=== PATIENT | female | born 1950 | race Caucasian/White ===

== ENCOUNTER → 2018-06-13 | Outpatient (CLI) | payer OTHER | LOC: M WHC 13:55 | DX: Z12.31 Encounter for screening mammogram for malignant neoplasm of breast (principal); M81.0 Age-related osteoporosis without current pathological fracture; J44.9 Chronic obstructive pulmonary disease, unspecified; M85.851 Other specified disorders of bone density and structure, right thigh; M85.852 Other specified disorders of bone density and structure, left thigh | CPT/HCPCS: 77067 ==

== ENCOUNTER → 2020-06-03 | Outpatient (CLI) | payer MEDICARE ==
--- NOTE | 2020-06-03 15:19 | REPVR ---
PROCEDURE INFORMATION: Exam: CT Maxillofacial Without Contrast, Sinus Exam date and time: 06/03/2020 2:47 PM Age: 69 years old Clinical indication: Pain; Other: Sinus; Additional info: Chronic pansinusitis TECHNIQUE: Imaging protocol: CT Maxillofacial without contrast. Focus on the sinuses. Radiation optimization: All CT scans at this facility use at least one of these dose optimization techniques: automated exposure control; mA and/or kV adjustment per patient size (includes targeted exams where dose is matched to clinical indication); or iterative reconstruction. COMPARISON: No relevant prior studies available. FINDINGS: Frontal sinuses: Frontal sinuses are not developed. Ethmoid air cells: There is minimal mucosal thickening in few ethmoid air cells. There is a very small osteoma in a mid ethmoid air cell on left. Sphenoid sinuses: Sphenoid sinuses are clear. Maxillary sinuses: There is a polypoid density in the right maxillary sinus which protrudes through the ostium into the nasal cavity and through the nasal choana into the nasopharynx crossing the midline. This is likely an antral choanal polyp. Recommend direct visualization. This has mass effect and medially displaces the middle turbinate. There appears to be some surrounding fluid around the polyp. There is minimal mucosal thickening superior aspect of left maxillary sinus. Nasal cavity/Septum: See "Maxillary sinuses" finding. Nasal septum is deviated to the right. Orbits: Orbits are unremarkable. Globes are intact. No exophthalmos. No evidence of mass. Bones/joints: Mild degenerative changes are noted in the visualized upper cervical spine. There is fracture of anterior wall of right maxillary sinus which in absence of any recent trauma is likely chronic and correlate clinically. Soft tissues: See "Submandibular/Parotid glands" finding. Mastoid air cells: Right mastoid air cells are less well aerated than left. Developed mastoid air cells and middle ear cavities are clear. Submandibular/Parotid glands: There is approximately 1.4 cm x 1 cm x 1.1 cm soft tissue mass in the posterolateral superficial portion the left parotid gland which contains a punctate calcification along its inferior margin. This is most likely some type salivary neoplasm such as a pleomorphic adenoma. This would be amenable to percutaneous biopsy. This located deep to the posterior auricle. IMPRESSION: 1. Right antral choanal polyp suggested and correlate with direct nasal cavity visualization. There appears to be adjacent fluid. Other sinus findings as described. 2. Small left superficial parotid mass. Electronically signed by: Juany Lopez On 06/03/2020 15:19:38 PM
== END ==
LOC: M RAD 14:27
PROVIDERS: ATTEND Otolaryngology
DX: J32.4 Chronic pansinusitis (principal); J33.9 Nasal polyp, unspecified; R22.1 Localized swelling, mass and lump, neck

== ENCOUNTER → 2020-10-19 | Outpatient (CLI) | payer MEDICARE ==
[~2020-10-19] MED LIST: AMLO1TAB25 PO; ASPI81CH17 PO; ATOR80TA59 PO; CARV6.25 PO; CITA40TA4 PO; D-101000 PO; FISH1000 PO; LISI40TA PO; POTA1TAB23 PO; VITA80003 PO
== END ==
LOC: M LABSMTC 11:00
PROVIDERS: ATTEND Anesthesiology
DX: Z01.812 Encounter for preprocedural laboratory examination (principal); Z20.822 Contact with and (suspected) exposure to COVID-19

== ENCOUNTER 2020-10-24 06:07 | Day surgery (SDC) | payer MEDICARE ==
[~2020-10-24] VITALS: Ht 157.5 cm; Wt 81.2 kg
[2020-10-24] MEDS ORDERED: METHYLENE BLUE 0.5% (5MG/ML) 10 ML AMP (PROVAYBLUE) As Ordered ONE (07:10)
[2020-10-24] MEDS ORDERED: LIDOCAINE W/EPINEPHRINE 1% 20ML VIAL As Ordered ONE (07:10)
[2020-10-24] MEDS ORDERED: EPINEPHrine 1MG/ML INJ 30ML MD-VIAL As Ordered ONE (07:10)
[2020-10-24] MEDS ORDERED: propofoL 200 MG/20 ML VIAL As Ordered ONE (07:55)
[2020-10-24] MEDS ORDERED: MIDAZOLAM INJ 2MG/2ML VIAL (J2250 PER 1MG) As Ordered ONE (07:55)
[2020-10-24] MEDS ORDERED: KETOROLAC 60MG 2ML VIAL As Ordered ONE (07:55)
[2020-10-24] MEDS ORDERED: fentaNYL 100 MCG/2 ML INJECTION (J3010) As Ordered ONE (07:55)
[2020-10-24] MEDS ORDERED: ROCURONIUM BROMIDE 50 MG/5 ML VIAL As Ordered ONE (07:55)
[2020-10-24] MEDS ORDERED: LIDOCAINE 2% 100MG/5ML SDV (FOR ANES.) As Ordered ONE (07:55)
[2020-10-24] MEDS ORDERED: SUGAMMADEX SODIUM 500 MG/5 ML VIAL (BRIDION) As Ordered ONE (07:55)
[2020-10-24] MEDS ORDERED: ONDANSETRON 4MG/2ML VIAL As Ordered ONE (07:55)
[2020-10-24] MEDS ORDERED: dexameTHASONE 4 MG/ML 1ML VIAL (J1100 PER 1MG) As Ordered ONE (07:55)
[2020-10-24] MEDS ORDERED: LACRILUBE (AKWA TEARS) OPHTH OINT 3.5 GM As Ordered ONE (07:57)
[2020-10-24] MEDS ORDERED: ALBUTEROL 6.7GM INHALER **FOR ANES. CART/OMNICELL ONLY As Ordered ONE (07:57)
[2020-10-24] MEDS ORDERED: hydrALAZINE 20MG/ML 1ML VIAL (J0360 PER 20MG) As Ordered ONE (08:09)
[2020-10-24] MEDS ORDERED: ACETAMINOPH W/CODEINE #3 TAB UD PO PRN (08:30)
[2020-10-24] MEDS ORDERED: LR 1,000 ML IV SCH ×2 (08:30→09:00)
[2020-10-24] MEDS ORDERED: HYDROMORPHONE HCL 0.5 MG/ 0.5 ML SYRINGE (J1170 PER 1) IV PRN (09:00)
[2020-10-24] MEDS ORDERED: PERCOCET 5MG/325MG TAB PO PRN (09:00)
[2020-10-24] MEDS ORDERED: ONDANSETRON 4MG/2ML VIAL IV PRN (09:00)
[2020-10-24] MEDS ORDERED: fentaNYL 100 MCG/2 ML INJECTION (J3010) IV PRN (09:00)
--- NOTE | 2020-10-24 09:29 | RO ---
OPERATIVE NOTE DATE OF OPERATION: 10/24/2020 PREOPERATIVE DIAGNOSIS: Chronic sinusitis and right antrochoanal polyp. POSTOPERATIVE DIAGNOSIS: PROCEDURE: Removal of antrochoanal polyp and antrostomy. SURGEON: Caden Rhoades MD TUBE CUTTER: ANESTHESIA: DESCRIPTION OF PROCEDURE: Under general anesthesia with the patient intubated, the patient draped in the usual manner. I used pledgets of adrenalin 1:100,000. I used a microdebrider, removed the polyp as well as the forceps used to remove the polyp. Once this was done then, I removed any polypoid tissue with the microdebrider. I went up into the sinus. I enlarged that opening and suctioned the material and the polyp from the maxillary sinus. I examined the area afterwards to make sure there was no further disease. There was a bleeding vessel at the superior rim of the antrostomy and I cauterized that with cautery. The patient tolerated the procedure well. Less than 50 mL of blood loss. The patient extubated and transferred to the recovery room in excellent condition. I did put some Gelfoam around that area that had been bleeding at the end of the procedure but it was not bleeding.
[2020-10-24 10:20] VITALS: BP 119/62
== END 2020-10-24 10:20 | disposition home or self-care (01) ==
LOC: M SDC 06:07
PROVIDERS: ATTEND Otolaryngology
DX: J33.9 Nasal polyp, unspecified (principal); J32.9 Chronic sinusitis, unspecified; I10 Essential (primary) hypertension; E78.5 Hyperlipidemia, unspecified; F17.218 Nicotine dependence, cigarettes, with other nicotine-induced disorders; Z79.82 Long term (current) use of aspirin; Z79.899 Other long term (current) drug therapy; Z91.041 Radiographic dye allergy status
CPT/HCPCS: 31267; 88305; J0360; J1100; J1885; J2250; J2405; J3010; Q9968

== ENCOUNTER → 2020-11-11 | Outpatient (CLI) | payer MEDICARE ==
[~2020-11-11] MED LIST changes: +ASPI-281 PO; -ASPI81CH17 PO; -LISI40TA PO; +LISI40TA4 PO
--- NOTE | 2020-11-11 16:58 | REPMRS ---
Patient History The patient states she had a clinical breast exam in 10/2020 Patient is postmenopausal. Family history of ovarian cancer at age 58 in sister. No Hormone Replacement Therapy Digital Woman Screen Mammo: November 11, 2020 - Exam #: [id number] Bilateral CC and MLO view(s) were taken. Technologist: Mallika Horn, Technologist Prior study comparison: June 13, 2018, bilateral digital woman screen mammo performed at [facility]. June 12, 2015, digital woman screen mammo performed at [facility]. April 04, 2014, digital woman screen mammo performed at [facility]. FINDINGS: There are scattered fibroglandular densities. The Volpara volumetric breast density category is:B. There has been no change in the appearance of the mammogram from the prior studies. There is a mild amount of scattered fibroglandular density which is fairly symmetric. There is no interval development of dominant mass, architectural distortion, or grouped microcalcification suggestive of malignancy. 3-D tomosynthesis shows no additional findings. Assessment: BI-RADS/ACR category 1 mammogram. Negative Mammogram. Recommendation Routine screening mammogram of both breasts in 1 year (for women over age 40). This patient's [facility] Lifetime Breast Cancer Risk is estimated at 3.6 %. This mammogram was interpreted with the aid of an FDA-approved computer-aided dectection system. Electronically Signed By: Yovani Rivera MD 11/11/20 [id number]
== END ==
LOC: M WHC 12:52
PROVIDERS: ATTEND Nurse Practitioner Family
DX: Z01.419 Encounter for gynecological examination (general) (routine) without abnormal findings (principal); Z12.31 Encounter for screening mammogram for malignant neoplasm of breast; Z78.0 Asymptomatic menopausal state; Z80.41 Family history of malignant neoplasm of ovary
CPT/HCPCS: 77063; 77067; G0101; G0123

== ENCOUNTER → 2020-11-11 | Outpatient (REF) | payer MEDICARE | LOC: M SFHCWAGY 18:32 | PROVIDERS: ATTEND Nurse Practitioner Family | DX: Z12.4 Encounter for screening for malignant neoplasm of cervix (principal); N95.2 Postmenopausal atrophic vaginitis ==

== ENCOUNTER → 2020-12-31 | Outpatient (CLI) | payer MEDICARE ==
--- NOTE | 2021-01-01 06:24 | REP ---
INDICATION: UNEXPLAINED ENDOMETRIAL CELLS ON CERVICAL CYTOLOGY COMPARISON: None. TECHNIQUE: Transabdominal pelvic ultrasound followed by transvaginal examination for better evaluation of the endometrium and adnexa with color Doppler evaluation of the ovaries. FINDINGS: Bladder is under distended, unremarkable and measures 6.4 x 5.0 x 4.3 cm (75 cc).. Heterogeneous anteverted uterus measures 7.1 x 3.3 x 4.8 cm. The endometrial complex measures 14 mm thickness with few likely incidental tiny cysts. No discrete uterine or endometrial abnormalities are appreciated but evaluation is limited due to technical factors and body habitus. Right ovary is not visualized due to overlying bowel gas in the right hemipelvis. Left ovary peers normal and measures 1.4 x 1.3 x 1.6 cm. No pelvic fluid or adnexal mass lesion. IMPRESSION: Limited examination demonstrating heterogeneous anteverted uterus with thickened endometrial complex having small incidental cystic changes. <Electronically signed by Bryan Harvey > 01/01/21 [id number]
== END ==
LOC: M WHC 10:47
PROVIDERS: ATTEND Nurse Practitioner Family
DX: R87.618 Other abnormal cytological findings on specimens from cervix uteri (principal)

== ENCOUNTER → 2021-01-20 | Outpatient (REF) | payer MEDICARE | LOC: M SFHCWAGY 13:04 | PROVIDERS: ATTEND Nurse Practitioner Women's Health | DX: R87.618 Other abnormal cytological findings on specimens from cervix uteri (principal); R93.89 Abnormal findings on diagnostic imaging of other specified body structures ==

== ENCOUNTER → 2021-05-23 | Outpatient (CLI) | payer MEDICARE ==
[~2021-05-23] MED LIST changes: +VITA1CAP21 PO
== END ==
LOC: M LABSMTC 10:49
PROVIDERS: ATTEND Anesthesiology
DX: Z01.818 Encounter for other preprocedural examination (principal); Z20.822 Contact with and (suspected) exposure to COVID-19

== ENCOUNTER 2021-05-28 10:27 | Day surgery (SDC) | payer MEDICARE ==
[~2021-05-28] VITALS: Ht 154.9 cm; Wt 82.1 kg
[~2021-05-28 10:27] MED LIST changes: +LIDOCAINE 1% MDV 20ML VIAL SQ PRN
[2021-05-28] MEDS ORDERED: LR 1,000 ML IV ONE (10:35)
[2021-05-28] MEDS ORDERED: LIDOCAINE 2% 100MG/5ML SDV (FOR ANES.) As Ordered ONE (11:32)
[2021-05-28] MEDS ORDERED: propofoL 200 MG/20 ML VIAL As Ordered ONE (11:32)
[2021-05-28] MEDS ORDERED: fentaNYL 100 MCG/2 ML INJECTION (J3010) As Ordered ONE (11:33)
[2021-05-28] MEDS ORDERED: MIDAZOLAM INJ 2MG/2ML VIAL (J2250 PER 1MG) As Ordered ONE (11:33)
[2021-05-28] MEDS ORDERED: CIPRODEX OTIC SUSP 7.5ML As Ordered ONE (12:32)
[2021-05-28] MEDS ORDERED: PERCOCET 5MG/325MG TAB PO PRN (13:35)
[2021-05-28] MEDS ORDERED: ONDANSETRON 4MG/2ML VIAL IV PRN (13:35)
[2021-05-28] MEDS ORDERED: LR 1,000 ML IV SCH ×2 (13:35→13:40)
[2021-05-28] MEDS ORDERED: METOCLOPRAMIDE INJ 10MG/2ML VIAL (J2765 PER 1) IV PRN (13:35)
[2021-05-28] MEDS ORDERED: fentaNYL 100 MCG/2 ML INJECTION (J3010) IV PRN (13:35)
[2021-05-28 14:25] VITALS: BP 130/58
--- NOTE | 2021-05-29 09:16 | RO ---
OPERATIVE NOTE DATE OF OPERATION: 05/28/2021 PREOPERATIVE DIAGNOSIS: Chronic otitis media with effusion. POSTOPERATIVE DIAGNOSIS: Chronic otitis media with effusion. PROCEDURE: Bilateral tympanostomy. SURGEON: STERLING BOWDEN MD ANESTHESIA: General. DESCRIPTION OF PROCEDURE: Speculum placed in the left ear. An incision made anteroinferior. Fluid is suctioned. A T-tube was placed. The same procedure was performed on the opposite side. The patient tolerated the procedure well and was transferred to the Recovery Room in excellent condition. Ciprodex drops were placed in the ear.
== END 2021-05-28 14:30 | disposition home or self-care (01) ==
LOC: M SDC 10:27
PROVIDERS: ATTEND Otolaryngology
DX: H66.3X3 Other chronic suppurative otitis media, bilateral (principal); I11.9 Hypertensive heart disease without heart failure; E78.00 Pure hypercholesterolemia, unspecified; H04.129 Dry eye syndrome of unspecified lacrimal gland; R06.02 Shortness of breath; F41.0 Panic disorder [episodic paroxysmal anxiety]; F32.9 Major depressive disorder, single episode, unspecified; J44.9 Chronic obstructive pulmonary disease, unspecified; F17.210 Nicotine dependence, cigarettes, uncomplicated; Z91.041 Radiographic dye allergy status; Z88.8 Allergy status to other drugs, medicaments and biological substances; Z79.899 Other long term (current) drug therapy; Z79.82 Long term (current) use of aspirin
CPT/HCPCS: 69436; J2250; J3010

== ENCOUNTER → 2021-11-19 | Outpatient (CLI) | payer MEDICARE ==
[~2021-11-19] MED LIST changes: -ASPI-281 PO; +ASPI-310 PO; -CITA40TA4 PO; +CITA40TA7 PO; -LIDOCAINE 1% MDV 20ML VIAL SQ PRN
== END ==
LOC: M RAD 14:01
PROVIDERS: ATTEND Family Medicine
DX: Z12.2 Encounter for screening for malignant neoplasm of respiratory organs (principal); F17.210 Nicotine dependence, cigarettes, uncomplicated

== ENCOUNTER → 2023-01-15 | Outpatient (CLI) | payer MEDICARE | LOC: M RAD 12:07 | PROVIDERS: ATTEND Family Medicine | DX: Z12.2 Encounter for screening for malignant neoplasm of respiratory organs (principal); F17.210 Nicotine dependence, cigarettes, uncomplicated ==

== ENCOUNTER → 2023-04-20 | Outpatient (REF) | payer MEDICARE | LOC: M LAB REF 16:31 | PROVIDERS: ATTEND Physician Assistant Medical | DX: H92.11 Otorrhea, right ear (principal) ==

== ENCOUNTER → 2024-02-11 | Outpatient (CLI) | payer MEDICARE | LOC: M WHC 12:22 | PROVIDERS: ATTEND Family Medicine | DX: Z12.31 Encounter for screening mammogram for malignant neoplasm of breast (principal); Z13.820 Encounter for screening for osteoporosis; M81.0 Age-related osteoporosis without current pathological fracture; R92.323 Mammographic fibroglandular density, bilateral breasts ==

== ENCOUNTER → 2024-03-06 | Outpatient (REF) | payer MEDICARE ==
[2024-03-08 21:42] LABS: HPV APTIMA Not Detected (Not Detected)
== END ==
LOC: M SFHCWAGY 17:07
PROVIDERS: ATTEND Nurse Practitioner Family
DX: Z12.4 Encounter for screening for malignant neoplasm of cervix (principal); N95.2 Postmenopausal atrophic vaginitis
CPT/HCPCS: 87624; G0123

== ENCOUNTER → 2024-07-27 | Outpatient (CLI) | payer MEDICARE | LOC: M PLAIMG 12:19 | PROVIDERS: ATTEND Physician Assistant | DX: R06.02 Shortness of breath (principal) ==